=== PATIENT | male | born 1985 | race Caucasian/White ===

== ENCOUNTER 2020-01-04 03:56 | Inpatient (IN) | payer MEDICARE, MEDICAID, SELFPAY ==
[~2020-01-04] VITALS: Ht 172.7 cm; Wt 63.5 kg
[2020-01-04 04:00] VITALS: BP_SYST 138
--- NOTE | 2020-01-04 04:00 | NUR ---
Received patient to ER w/ c/o abd pain associated w/ n/v/d ongoing since yesterday. Per patient h/o DM for which acck in ER noted at 50 and 39. MD Notified, Patient to have iv h.l. placed to Left Forearm. Introduced self to patient, positioned for comfort and safety w/ bed to low position, sr up, continue to monitor. Will medicate as order and observe for any adverse reaction.
--- NOTE | 2020-01-04 04:03 | NUR ---
Patient to ER bed 6 to gown for evaluation. Side rails up. Report given to Anthony HADLEY/Konrad HADLEY.
--- NOTE | 2020-01-04 04:25 | NUR ---
Patient medicated as ordered w/ x1 amp of D50, pepcid 20mg, MS 2mg, Zofran, and x1 liter NS. Iv site to left forearm patent and intact. Will observe for any adverse reaction, bed to low position sr up, continue to monitor.
[2020-01-04] MEDS ORDERED: MORPHINE 2 MG/ML INJ. SYRINGE IVP ONE ×2 (04:30→06:30)
[2020-01-04] MEDS ORDERED: NACL 0.9% 1,000 ML IV ONE (04:30)
[2020-01-04] MEDS ORDERED: ONDANSETRON HCL 4 MG/2 ML VIAL IVP ONE (04:30)
[2020-01-04] MEDS ORDERED: DEXTROSE 50% JECT 50 ML DISP.SYRIN IVP ONE (04:45)
[2020-01-04] MEDS ORDERED: FAMOTIDINE PF 20 MG/2 ML VIAL IVP ONE (04:45)
[2020-01-04] MEDS ORDERED: FAMOTIDINE PF 20 MG/2 ML VIAL ONE (04:50)
[2020-01-04 04:58] LABS: BASOPHILS # (AUTO) 0.1 K/uL (0.0-0.2); BASOPHILS % (AUTO) 1.2 % (0.0-2.0); EOSINOPHILS # (AUTO) 0.7 K/uL (0.0-0.4); EOSINOPHILS % (AUTO) 6.3 % (0.0-4.0); HEMOGLOBIN 11.5 g/dL (14.0-18.0); LYMPHOCYTES # (AUTO) 2.6 K/uL (1.0-5.5); LYMPHOCYTES % (AUTO) 23.5 % (20.5-51.5); MEAN CORPUSCULAR HEMOGLOBIN 29 pg (27-31); MEAN CORPUSCULAR HGB CONC 33 % (32-36); MEAN CORPUSCULAR VOLUME 88 fL (79.0-98.0); MONOCYTES % (AUTO) 9.2 % (1.7-9.3); NEUTROPHILS # (AUTO) 6.7 K/uL (1.8-7.7); NEUTROPHILS % (AUTO) 59.8 % (40.0-70.0); PLATELET COUNT (AUTO) 230 K/uL (130-430); RED BLOOD CELL COUNT(AUTO) 3.97 MIL/uL (4.2-6.2); RED CELL DISTRIBUTION WIDTH 13.7 % (9.0-15.0); WHITE BLOOD COUNT (AUTO) 11.1 K/uL (4.8-10.8)
[2020-01-04 05:06] LABS: CALCIUM 8.1 mg/dL (8.4-11.0); CREATININE 2.08 mg/dL (0.55-1.30); POTASSIUM 4.7 mmol/L (3.5-5.1)
[2020-01-04 05:14] LABS: ALBUMIN 3.4 g/dL (3.4-4.8); TOTAL BILIRUBIN 0.3 mg/dL (0.0-1.0)
--- NOTE | 2020-01-04 05:16 | NUR ---
Repeat acck noted at 106 after x1 amp of D50 given. continue to monitor.
--- NOTE | 2020-01-04 05:29 | NUR ---
ROSALIO Burch at bedside examining patient.
--- NOTE | 2020-01-04 05:56 | NUR ---
Notified ED Admitting of admission. Per Dr. Ritter pt is not transferable. ED Admitting, Carolyn, stated we do not need to call pt insurance and to call erp consultant.
[2020-01-04] MEDS ORDERED: D5NS 1,000 ML IV ONE (06:00)
--- NOTE | 2020-01-04 06:07 | NUR ---
Patient started on D5NS at 100ml/hr after patient repeat acck noted to drop to 65mg/dl x1 hour after being medicated w/ x1 amp of D50. Prior to start of D5NS patient given total of 240ml of Wil[place] Juice (tolerated). Patient still c/o moderate abd pain. Positioned patient for comfort and safety w/ bed to low position sr up, continue to monitor.
[2020-01-04] MEDS ORDERED: D5NS 1,000 ML IV SCH (06:15)
[2020-01-04] MEDS ORDERED: methylPREDNISolone SOD SUCC 40 MG/ML VIAL IVP ONE (06:15)
[2020-01-04] MEDS ORDERED: INSU100V9 SQ (06:27)
[2020-01-04] MEDS ORDERED: OXYIR5 PO (06:27)
[2020-01-04] MEDS ORDERED: INSU100V SQ (06:27)
--- NOTE | 2020-01-04 06:31 | NUR ---
Patient medicated w/ solumedrol and morphine 2mg ivp as ordered. Will observe for any adverse reaction. Bed to low position sr up. continue to monitor level of comfort.
--- NOTE | 2020-01-04 06:45 | NUR ---
Acck noted 151. MRSA swab obtained and sent. patient resting comfortably at this time in no acute distress, Iv site patent and intact currently receiving iv D5NS at 100ml/hr. Bed to low position sr up continue to monitor level of comfort. awaiting ua specimen.
--- NOTE | 2020-01-04 07:10 | NUR ---
Assumed care of patient, report received from JOMAR Landers. Pt currently resting in bed, no distress noted. Will continue to monitor.
--- NOTE | 2020-01-04 07:19 | NUR ---
Radiology at bedside for ultrasound.
--- NOTE | 2020-01-04 07:55 | NUR ---
Accucheck 150mg/dL
[2020-01-04] MEDS ORDERED: ONDANSETRON HCL 4 MG/2 ML VIAL IVP PRN (08:15)
--- NOTE | 2020-01-04 08:19 | NUR ---
Med rec and belongings list completed.
[2020-01-04] MEDS ORDERED: ACETAMINOPHEN 325 MG TABLET PO PRN (08:30)
--- NOTE | 2020-01-04 08:40 | NUR ---
TO from Dr. Mata to change accucheck to q 2 hours.
[2020-01-04] MEDS ORDERED: PANTOPRAZOLE SODIUM 40 MG/VIAL (PROTONIX) IVP SCH (09:00)
--- NOTE | 2020-01-04 09:00 | NUR ---
Patient will be admitted to care of Dr. Mata. Admitted to ICU unit. Will go to room 3. Belongings list completed. Complete and up to date summary report printed. SBAR report to be given at bedside with opportunity for questions. IV site intact and patent.
--- NOTE | 2020-01-04 09:30 | NUR ---
Opening note Received report from DRAG DOWN, pt on RA, SR on monitor, in NAD.
[2020-01-04 09:44] VITALS: BP_SYST 161
[2020-01-04 10:00] VITALS: BP_SYST 139
--- NOTE | 2020-01-04 10:20 | NUR ---
MD Rounds Dr. Mata at bedside- updated on patient. New orders received HIGH ALERT NOTE: VORB with Dr. Mata for morphine 2 mg IVP Q4 PRN severe pain.
[2020-01-04] MEDS ORDERED: INSULIN LISPRO SLIDING SCALE 100 UNITS/ML VIAL (humaLOG) SUBCUT PRN (10:30)
[2020-01-04] MEDS ORDERED: MORPHINE 2 MG/ML INJ. SYRINGE IVP PRN ×2 (10:30→10:45)
[2020-01-04] MEDS ORDERED: POTASSIUM CHLORIDE 10 MEQ in NACL 0.9% 1,000 ML IV SCH (10:30)
--- NOTE | 2020-01-04 10:37 | NUR ---
CONSULTATION PAGED/CALLED Reason for Consultation: [] ABD PAIN; H/O PANCREATITIS Person Who was Notified: [] JEFFREY Consulting Physician: [] DR ACEVES, A [employer] Maker Specialty: [] GI Ordering Physician: [] DR SEGURA
[2020-01-04] MEDS ORDERED: NALOXONE HCL 0.4 MG/ML AMP (NARCAN) IVP PRN (10:45)
--- NOTE | 2020-01-04 10:48 | NUR ---
CONSULTATION PAGED/CALLED Reason for Consultation: [] SEVERE HYPOGLYCEMIA DM1 Person Who was Notified: [] ERICKA Consulting Physician: [] DR SANTORO Hemodialysis Charge Nurse Specialty: [] ENDOCRINE Ordering Physician: [] DR SEGURA
[2020-01-04 11:00] VITALS: BP_SYST 142
[2020-01-04] MEDS ORDERED: DEXTROSE 50%-WATER 50 ML DISP.SYRIN IVP PRN (11:00)
[2020-01-04] MEDS ORDERED: GLUCOSE (DEXTROSE) ORAL GEL -Adults PO PRN (11:00)
[2020-01-04] MEDS ORDERED: D5W 1,000 ML IV PRN (11:00)
--- NOTE | 2020-01-04 11:17 | NUR ---
RAS FROM DR SANTORO'S OFFICE RELAYED THAT DECLINED THE CONSULT. ACCDG TO RAS, DR SANTOOR RESIGNED OR DOES NOT TAKE CONSULT FROM OUR [facility]OS[facility].
--- NOTE | 2020-01-04 11:23 | NUR ---
PAGED ATTENDING MD DR SEGURA TO INFORM HER THAT ENDOCRINE MD DR SANTOOR DOES NOT COME TO OUR [facility]OS[facility] ANYMORE.
--- NOTE | 2020-01-04 11:45 | NUR ---
Communication received call from Dr. Mata- updated on patient BS 403. new orders received. Notified her Dr. Hansen is not available at this hospital.
[2020-01-04 12:00] VITALS: BP_SYST 123
--- NOTE | 2020-01-04 13:10 | NUR ---
JOMAR ALONSO PATIENT ASSISTED TO THE COMMODE. Addendum: 01/04/20 at 1346 by Harleen Alvarez RN 1300 ASSISTED TO THE COMMODE.
--- NOTE | 2020-01-04 13:10 | NUR ---
RN NOTES BACK TO BED. PATIENT CLAIMED HE FEELS HIS BLOOD SUGAR IS STILL HIGH ANS REQUESTED TO BE CHECKED AGAIN. BLOOD SUGAR - 385 MG/DL WILL CALL MD FOR ORDERS.
--- NOTE | 2020-01-04 13:15 | NUR ---
RN NOTES PATIENT COMPLAINED HE'S NOT GETTING PROPER TREATMENT HERE AND WOULD RATHER GO HOME AND DO HIS INSULIN TREATMENT AT HOME.
--- NOTE | 2020-01-04 13:19 | NUR ---
PT EDUCATION Discussed with pt his concerns regarding hospitalization. Provided pt with education and explanation of medication and plan of care, pt stated "I just want to go home and take care of myself there". Pt was provided reassurance but feelings of AMA have not changed.
--- NOTE | 2020-01-04 13:30 | NUR ---
RN NOTES SPOKE TO DR. SEGURA, MADE AWARE OF PATIENT BS - 385 AND PATIENT WANTING TO GO AMA.
--- NOTE | 2020-01-04 13:45 | NUR ---
RN Rounds Discussed pt concerns with patient regarding decision to leave AMA. Pt states he does not like not being able to manage his blood sugar himself. He states that his "whole body feels bloated" when his blood sugar is this high. Pt understands the risks of leaving AMA and still wishes to leave and states he is looking for a ride.
--- NOTE | 2020-01-04 14:24 | NUR ---
RN NOTES: AMA PATIENT WENT HOME AGAINST MEDICAL ADVICE. AMA FORM SIGNED BY PATIENT.
--- NOTE | 2020-01-04 14:25 | NUR ---
Discharge Pt seen leaving unit with all his belongings, A/O x4, steady gait. Pt discharged by Senthil Mace. Addendum: 01/04/20 at 1447 by Gino Castelan RN Closing note Pt seen leaving unit AMA with all his belongings, A/O x4, steady gait.
[2020-01-05 07:06] LABS: HEPATITIS A AB, IgM Negative (Negative); HEPATITIS B CORE AB, IgM Negative (Negative); HEPATITIS B SURFACE AG Negative (Negative)
== END 2020-01-04 14:24 | disposition left against medical advice (07) | DRG 639 ==
LOC: SED 03:56 → SIC 06:10
PROVIDERS: ADMIT Internal Medicine; ATTEND Internal Medicine
DX: E10.649 Type 1 diabetes mellitus with hypoglycemia without coma (principal); E10.21 Type 1 diabetes mellitus with diabetic nephropathy; N18.30 Chronic kidney disease, stage 3 unspecified; E10.43 Type 1 diabetes mellitus with diabetic autonomic (poly)neuropathy; Z53.29 Procedure and treatment not carried out because of patient's decision for other reasons; Z20.828 Contact with and (suspected) exposure to other viral communicable diseases; K31.84 Gastroparesis; Z79.4 Long term (current) use of insulin; Z88.1 Allergy status to other antibiotic agents; Z88.8 Allergy status to other drugs, medicaments and biological substances
CPT/HCPCS: 36415; 76700-TC; 80053; 80074; 82962; 83690-TC; 85025; 87081; 93005; 96374; 96375; 96376; 99285; C9113; G0482; J1030; J2270; J2405; J3480; J3490; J7030